=== PATIENT | male | born 1970 | race Caucasian/White ===

== ENCOUNTER 2019-10-01 11:31 | Emergency (ER) | payer BC ==
[2019-10-01] MEDS ORDERED: LORazepam 2 MG/ML SDV IVPUSH ONE (11:40)
[2019-10-01] MEDS ORDERED: Aspirin 325 MG Tab PO ONE (11:42)
--- NOTE | 2019-10-01 11:46 | EDM.PDOC ---
ED HPI GENERAL MEDICAL PROBLEM - General Chief Complaint: Chest Pain Stated Complaint: CHEST PAIN Time Seen by Provider: 10/01/19 11:33 Source of Information: Reports: Patient History Limitations: Reports: No Limitations - History of Present Illness INITIAL COMMENTS - FREE TEXT/NARRATIVE: This is a 49-year-old gentleman who presents the emergency room with a chief complaint of left-sided sharp chest pain 5 out of 10 radiating to his neck that lasted about 5 seconds. Then came to the emergency room feeling a" little jittery".. Pain is absent. She has a history of hypertension. Patient does not smoke. Patient does not have high cholesterol and no family history. Onset: Today Duration: Minutes:, Resolved Prior to Arrival Location: Reports: Chest Severity: Moderate Improves with: Reports: None Worsens with: Reports: None Associated Symptoms: Reports: No Other Symptoms, Chest Pain Generalized Pain Score (Numeric/FACES): 6 - Related Data Allergies Allergy/AdvReac Type Severity Reaction Status Date / Time No Known Allergies Allergy Verified 10/01/19 11:33 Home Meds: Home Meds Albuterol Sulfate [Albuterol Sulfate Hfa] 1 puff INH ASDIRECTED PRN 10/01/19 [ History] Atenolol [Tenormin] 50 mg PO DAILY 10/01/19 [History] Past Medical History Cardiovascular History: Reports: Hypertension Respiratory History: Reports: Asthma - Infectious Disease History Infectious Disease History: Reports: None - Past Surgical History HEENT Surgical History: Reports: Naso-Sinus Surgery Social & Family History - Family History Family Medical History: Noncontributory - Tobacco Use Smoking Status *Q: Never Smoker - Caffeine Use Caffeine Use: Reports: Soda, Tea - Recreational Drug Use Recreational Drug Use: No ED ROS GENERAL - Review of Systems Review Of Systems: See Below Constitutional: Reports: No Symptoms HEENT: Reports: No Symptoms Respiratory: Reports: No Symptoms Cardiovascular: Reports: Chest Pain, Blood Pressure Problem Endocrine: Reports: No Symptoms GI/Abdominal: Reports: No Symptoms : Reports: No Symptoms Musculoskeletal: Reports: No Symptoms, Neck Pain Skin: Reports: No Symptoms Neurological: Reports: No Symptoms Psychiatric: Reports: No Symptoms Hematologic/Lymphatic: Reports: No Symptoms Immunologic: Reports: No Symptoms ED EXAM, GENERAL - Physical Exam Exam: See Below Exam Limited By: No Limitations General Appearance: Alert, WD/WN, No Apparent Distress Eye Exam: Bilateral Eye: Normal Fundi, Normal Inspection Ears: Normal External Exam, Normal Canal, Normal TMs Nose: Normal Inspection, Normal Mucosa Throat/Mouth: Normal Inspection, Normal Lips Head: Atraumatic, Normocephalic Neck: Normal Inspection, Supple Respiratory/Chest: No Respiratory Distress, Lungs Clear, Normal Breath Sounds, No Accessory Muscle Use, Chest Non-Tender Cardiovascular: Normal Peripheral Pulses, Regular Rate, Rhythm, No Edema GI/Abdominal: Normal Bowel Sounds, Soft, Non-Tender (Male) Exam: Deferred Back Exam: Normal Inspection, Full Range of Motion Extremities: Normal Inspection, Normal Range of Motion, Non-Tender Neurological: Alert, Oriented, CN II-XII Intact, Normal Cognition, Normal Reflexes Psychiatric: Normal Affect, Normal Mood Skin Exam: Warm, Dry, Intact Lymphatic: No Adenopathy Course - Vital Signs Text/Narrative:: This 49-year-old gentleman presents the emergency room with 1 second of chest pain going to his neck sharp. Patient stated he feels jittery and was a little anxious. Patient's work-up has been negative for cardiac disease i.e. negative troponin normal EKG normal labs. Patient has no risk factors for cardiac disease at this time. Patient has had 2- troponins and will be discharged home. Patient can follow-up with his primary care physician with a lime filter operator for further work-up he is 49 years old. Will be discharged with a diagnosis of anxiety and atypical chest pain Last Recorded V/S: Last Vital Signs Temp 97.1 F 10/01/19 14:13 Pulse 90 10/01/19 15:31 Resp 16 10/01/19 15:31 BP 122/89 10/01/19 15:31 Pulse Ox 96 10/01/19 15:31 - Orders/Labs/Meds Labs: Laboratory Tests 10/01/19 10/01/19 10/01/19 Range/Units 11:33 11:33 15:48 WBC 7.07 (4.0-11.0) K/uL RBC 5.52 (4.50-5.90) M/uL Hgb 16.5 (13.0-17.0) g/dL Hct 48.8 (38.0-50.0) % MCV 88.4 (80.0-98.0) fL MCH 29.9 (27.0-32.0) pg MCHC 33.8 (31.0-37.0) g/dL RDW Std Deviation 41.1 (28.0-62.0) fl RDW Coeff of Allyson 13 (11.0-15.0) % Plt Count 204 (150-400) K/uL MPV 10.90 (7.40-12.00) fL Neut % (Auto) 65.2 (48.0-80.0) % Lymph % (Auto) 25.7 (16.0-40.0) % [place] % (Auto) 8.1 (0.0-15.0) % Eos % (Auto) 0.7 (0.0-7.0) % Baso % (Auto) 0.3 (0.0-1.5) % Neut # (Auto) 4.6 (1.4-5.7) K/uL Lymph # (Auto) 1.8 (0.6-2.4) K/uL [place] # (Auto) 0.6 (0.0-0.8) K/uL Eos # (Auto) 0.1 (0.0-0.7) K/uL Baso # (Auto) 0.0 (0.0-0.1) K/uL Nucleated RBC % 0.0 /100WBC Nucleated RBCs # 0 K/uL Sodium 138 (136-148) mmol/L Potassium 3.8 (3.5-5.1) mmol/L Chloride 100 (98-107) mmol/L Carbon Dioxide 26.9 (21.0-32.0) mmol/L BUN 14 (7.0-18.0) mg/dL Creatinine 1.3 (0.8-1.3) mg/dL Est Cr Clr Drug Dosing 76.83 mL/min Estimated GFR (MDRD) 58.4 ml/min Glucose 101 (74-106) mg/dL Calcium 9.5 (8.5-10.1) mg/dL Total Bilirubin 1.6 H (0.2-1.0) mg/dL AST 16 (15-37) IU/L ALT 24 (14-63) IU/L Alkaline Phosphatase 52 (46-116) U/L Troponin I < 0.050 < 0.050 (0.000-0.056) ng/mL Total Protein 8.2 (6.4-8.2) g/dL Albumin 4.9 (3.4-5.0) g/dL Globulin 3.3 (2.6-4.0) g/dL Albumin/Globulin Ratio 1.5 (0.9-1.6) Meds: Medications Discontinued Medications Generic Name Dose Route Start Last Admin Trade Name Zita PRN Reason Stop Dose Admin Aspirin 325 mg 10/01/19 11:42 10/01/19 11:52 Aspirin PO 10/01/19 11:43 325 mg ONETIME ONE Administration Lorazepam 1 mg 10/01/19 11:40 10/01/19 11:54 Ativan IVPUSH 10/01/19 11:41 Not Given ONETIME ONE Departure - Departure Time of Disposition: 16:49 Disposition: Home, Self-Care 01 Condition: Good Clinical Impression: Anxiety about health, Atypical chest pain Instructions: Nonspecific Chest Pain, Adult, Living With Anxiety Referrals: PCP,None [Ordering Only Provider] - Forms: ED Department Discharge Additional Instructions: Patient to get an appointment with the lime filter operator To return for any problems i.e. chest pain or shortness of breath Sepsis Event Note - Evaluation Sepsis Screening Result: No Definite Risk - Focused Exam Vital Signs: Vital Signs Temp Pulse Resp BP Pulse Ox 10/01/19 15:31 90 16 122/89 96 10/01/19 14:45 84 124/76 97 10/01/19 14:13 97.1 F 86 18 121/83 96 10/01/19 12:31 75 18 125/80 96 10/01/19 12:01 97.1 F 154/91 H 10/01/19 11:34 96.7 F L 87 22 H 154/95 H 97 Date Exam was Performed: 10/01/19 Time Exam was Performed: 16:46
[2019-10-01 12:09] LABS: BLOOD UREA NITROGEN,BUN 14 mg/dL (7.0-18.0); CARBON DIOXIDE,CO2 26.9 mmol/L (21.0-32.0); CHLORIDE,CL 100 mmol/L (98-107); GLUCOSE RANDOM 101 mg/dL (74-106); POTASSIUM,K 3.8 mmol/L (3.5-5.1); SODIUM,NA 138 mmol/L (136-148)
--- NOTE | 2019-10-01 12:22 | CR ---
Chest: Portable view of the chest was obtained. Comparison: No prior chest imaging. Heart size and mediastinum are normal. Lungs are clear with no acute parenchymal change. Bony structures are grossly intact. Impression: 1. Nothing acute is appreciated on portable chest x-ray. Diagnostic code #1 This report was dictated in MDT
== END 2019-10-01 17:10 | disposition home or self-care (01) ==
LOC: MW.ED 11:31
DX: R07.89 Other chest pain (principal); F41.9 Anxiety disorder, unspecified; I10 Essential (primary) hypertension; J45.909 Unspecified asthma, uncomplicated
CPT/HCPCS: 36415; 71045; 80053; 84484; 85025; 93005; 99285; A9270; 99283